=== PATIENT | male | born 1985 | race Two or more races ===

== ENCOUNTER 2023-11-18 22:07 | Emergency (ER) | payer MEDICAID, OTHER ==
[~2023-11-18] VITALS: Ht 170.2 cm; Wt 77.1 kg
[2023-11-19 00:01] VITALS: BP 140/92; PULSE 86; RESP 18; TEMP 97.9; O2SAT 96
[2023-11-19] MEDS ORDERED: ACYC1TAB3 PO (00:04)
== END 2023-11-19 00:17 | disposition home or self-care (01) ==
LOC: ER 22:07
DX: B02.9 Zoster without complications (principal)